=== PATIENT | female | born 2000 | race Caucasian/White ===

== ENCOUNTER 2024-09-14 06:36 | Outpatient (REF) | payer BC, SELFPAY ==
--- NOTE | ~2024-09-14 | US_ITS ---
EXAMINATION: US PELVIS CLINICAL INFORMATION: Irregular periods COMPARISON: None available. TECHNIQUE: Ultrasound of the pelvis is performed using both transabdominal and transvaginal transducers along with Doppler. Transvaginal imaging is performed due to inadequate visualization transabdominally. FINDINGS: [ Uterus: The uterus is anteversion flexion position and measures 6 x 3 x 5 cm. Cervix is closed and normal . The double wall endometrial thickness is 1 mm. The uterus is smooth in contour and has normal myometrial echogenicity. No visible fibroid. Adnexa: Both ovaries are visualized. There is normal color flow to the adnexa. There is no ovarian torsion. There is no pelvic ascites or fluid collection. Right ovary measures 3 x 2 x 2 cm. Volume: 6 cc. Left ovary measures 3 x 2 x 3 cm. Volume: 9 cc US/US pelvic and transvaginal IMPRESSION: Normal exam. Electronically signed by: Merrill Garcia MD 09/15/2024 07:08 AM [facility]
--- OUTSIDE RECORDS SUMMARY | 2024-09-14 06:39 | XMS_ITS | Clinical Summary ---
Author Organization [facility] Address [address] [place] [address] Care Team Providers Care Oncology Transplant Network Manager Name Role Phone Liam Mcadams MD Primary Care Provider [phone] Allergies Active Allergy Reactions Criticality Noted Date Comments Amoxicillin Hives 06/17/2019 Medications fluticasone propionate (FLOVENT DISKUS) 50 mcg/actuation diskus inhaler Inhale 1 puff 2 (two) times a day. Rinse mouth with water after use to reduce aftertaste and incidence of candidiasis. Do not swallow. Active fluticasone propionate (FLONASE NASL) Administer into affected nostril(s). Active levalbuterol (XOPENEX HFA) 45 mcg/actuation inhaler 3 Active Social History Tobacco Use Types Packs/Day Years Used Date Smoking Tobacco: Never Assessed Comments Unknown Sex and Gender Information Value Date Recorded Sex Assigned at Not on file Legal Sex Female 12:27 PM EST Gender Identity Not on file Sexual Orientation Not on file Last Filed Vital Signs Vital Sign Reading Time Taken Comments Blood Pressure 136/92 01/13/2023 12:15 AM EDT Pulse 102 01/13/2023 12:15 AM EDT Temperature 36.7 ??C (98.1 ??F) 01/13/2023 12:15 AM E DT Respiratory Rate 18 01/13/2023 12:15 AM EDT Oxygen Saturation 100% 01/13/2023 12:15 AM EDT Inhaled Oxygen Concentration - - Weight - - Height - - Body Mass Index - - Plan of Treatment Health Maintenance Due Date Last Done Comments Varicella Vaccines (2 of 2 - 2-dose childhood series) 12/16/2006 09/23/2006 Chlamydia Screening 2017 Hepatitis C Screening 12/14/2019 Periodic Health Exam 12/14/2019 Tetanus Diphtheria and Pertussis Vaccines (TD and TDaP) (1 - Tdap) 2020 Cervical Cancer Screening 2022 Influenza (Seasonal) 02/17/2024 04/27/2022, 05/06/2021, 04/11/2020, Additional history exists CoVid-19 Vaccine ( season) 2024 06/27/2021, 10/30/2020, 10/09/2020 HPV Vaccines Completed 02/04/2016, 01/29/2015 Meningococcal Vaccine Completed 12/22/2017, 013 HIB Vaccines Aged Out No longer eligi ble based on patient's age to complete this topic Pneumococcal Vaccine: Pediatrics (0 to 5 Years) and At-Risk Patients (6 to 64 Years) Aged Out No longer eligible based on patient's age to complete this topic Insurance [employer] [facility] Care Teams Oncology Transplant Network Manager Relationship Specialty Start Date End Date Liam Mcadams MD [address] [place], [place] [id number] PCP - General Pediatrics 06/17/19
--- OUTSIDE RECORDS SUMMARY | 2024-09-14 06:39 | XMS_ITS | Clinical Summary ---
Author Organization [facility] Address [address] [place] [address] Phone Care Team Providers Care Manager Of Community Relations Name Role Phone Liam Mcadams MD Primary Care Provider [phone] Sergio Smith MD Unavailable [phone] Liam Mcadams MD Unavailable [phone] Liam Mcadams MD Unavailable [phone] Sergio Smith MD Unavailable [phone] Tad Gutierrez MD Unavailable [phone] Allergies Active Allergy Reactions Criticality Noted Date Comments Penicillins Rash 12/29/2023 Medications sertraline (Zoloft) 50 mg tablet Dose: 50 mg, Dose Amount: 1 tab, PO, daily, Entered: 02/14/20 14:37:00 EDT 02/14/2020 Active Active Problems Problem Noted Date Diagnosed Date Palpitations 12/29/2023 Social History Tobacco Use Types Packs/Day Years Used Date Smoking Tobacco: Never Assessed Comments Unknown Sex and Gender Information Value Date Recorded Sex Assigned at Not on file Legal Sex Female 5:06 PM EDT Gender Identity Not on file Sexual Orientation Not on file Last Filed Vital Signs Vital Sign Reading Time Taken Comments Blood Pressure 140/81 12/29/2023 11:31 AM EDT ma p 101 Pulse 103 12/29/2023 11:31 AM EDT Temperature 36.3 ??C (97.3 ??F) 02/05/2021 11:38 AM E DT Respiratory Rate - - Oxygen Saturation 98% 12/29/2023 11:31 AM EDT Inhaled Oxygen Concentration - - Weight 70 kg (154 lb 5.2 oz) 12/29/2023 11:31 AM EDT Height 166 cm (5' 5.35 ) 12/29/2023 11:31 AM EDT Body Mass Index 25.4 12/29/2023 11:31 AM EDT Plan of Treatment Health Maintenance Due Date Last Done Comments HIV Screening 2001 Varicella Vaccines (2 of 2 - 2-dose childhood series) 12/16/2006 09/23/2006 IPV Vaccines (2 of 3 - 4-dose series) 01/07/2007 12/10/2006 HPV Vaccines (2 - 2-dose series) 08/06/2016 02/04/2016 Hepatitis C Screening 12/14/2019 Hepatitis B Vaccines (1 of 3 - 19+ 3-dose series) 2020 COVID-19 Vaccine ( season) 2024 03/16/2023, 06/27/2021, 10/30/2020, Additional history exists Influenza Vaccine (#1) 2024 , 04/27/2022, 05/06/2021, Additional history exists DTaP/Tdap/Td Vaccines (4 - Td or Tdap) 01/05/2033 01/05/2023, 01/02/2013, 12/10/2006 MMR Vaccines Completed 09/23/2006 Hepatitis A Vaccines Completed 11/29/2017, 03/12/20 17 Meningococcal Vaccine Completed 12/22/2017, 013 HIB Vaccines Aged Out No longer eligi ble based on patient's age to complete this topic Pneumococcal Vaccine: Pediatrics (0 to 5 Years) and At-Risk Patients (6 to 64 Years) Aged Out No longer eligible based on patient's age to complete this topic Rotavirus Vaccines Aged Out No longer eligible based on patient's age to complete this topic Insurance BLUE CROSS - OOS [employer] CROSS - OOS BLUE CROSS - OOS BLUE CROSS - OOS Care Teams Manager Of Community Relations Relationship Specialty Start Date End Date Liam Mcadams MD [address] [place] [phone] PCP - General 09/14/18 Liam Mcadams MD [address] [place] [address] PCP - Clinical PCP 02/23/13 Liam Mcadams MD [address] [place] [phone] PCP - Insurance PCP 12/31/05 Sergio Smith MD [address] [place] [phone] Associate Attending Cardiology 12/01/18 Sergio Smith MD [address] [place] [address] HC Shale Processing Technician 12/18/23 Tad Gutierrez MD [address] [place] [address] HC Cardiology Subspecialist 12/18/23
--- OUTSIDE RECORDS SUMMARY | 2024-09-14 06:39 | XMS_ITS | Clinical Summary ---
Author Organization [facility] Address [phone] [facility] [place] [address] Care Team Providers Care Hand Ironer Name Role Phone Liam Mcadams MD Primary Care Provider [phone] Allergies Active Allergy Reactions Criticality Noted Date Comments Amoxicillin Hives 07/09/2017 Penicillins Hives 06/20/2023 Medications Medication Sig Dispensed Refills Start Date End Date Status LORazepam (ATIVAN) 1 MG tablet Take 0.5 tablets (0.5 mg total) by mouth every 6 (six) hours as needed for anxiety. 10 tablet 08/21/2018 Active Social History Tobacco Use Types Packs/Day Years Used Date Smoking Tobacco: Never Assessed Education Answer Date Recorded Are you interested in more education? Not on sarita e 11/15/2022 Are you concerned about learning? Not on file 11/15/2022 No 11/15/2022 No 11/15/2022 Digital Access Answer Date Recorded No 2022 No 2022 No 2022 Reliable internet access at home? Not on file 2022 Device with a working camera? Not on file Intimate Partner Violence Answer Date R ecorded Are you denied basic needs s uch as food, clothing, or medical care? No 06/20/2023 In the past 12 months have y ou been in a relationship with a person who hurts, threatens, or tries to control you? No 06/20/2023 Are you denied basic needs s uch as food, clothing, or medical care? No 06/20/2023 In the past 12 months have y ou been in a relationship with a person who hurts, threatens, or tries to control you? No 06/20/2023 Sex and Gender Information Value Date Recorded Sex Assigned at Not on file Gender Identity Not on file Sexual Orientation Not on file Last Filed Vital Signs Vital Sign Reading Time Taken Comments Blood Pressure 131/79 06/20/2023 12:54 AM EST Pulse 105 06/20/2023 12:54 AM EST Temperature 36.6 ??C (97.9 ??F) 06/20/2023 12:[address] Respiratory Rate 18 06/20/2023 12:54 AM EST Oxygen Saturation 100% 06/20/2023 12:54 AM EST Inhaled Oxygen Concentration - - Weight 67.1 kg (148 lb) 06/20/2023 12:07 AM EST Height 167.6 cm (5' 6 ) 06/20/2023 12:07 AM EST Body Mass Index 23.89 06/20/2023 12:07 AM EST Plan of Treatment Health Maintenance Due Date Last Done Comments DEPRESSION SCREENING 2013 SMOKING Hx and SMOKELESS TOBACCO SCREENING 2014 HPV VACCINES (2 - 2-dose series) 08/06/2016 02/04/2016 CHLAMYDIA SCREENING 2017 HEPATITIS B SCREENING 12/14/2019 HEPATITIS C SCREENING 12/14/2019 HIV ONE-TIME SCREENING (18-65 YEARS) 12/14/2019 HEPATITIS B VACCINES (1 of 3 - 19+ 3-dose series) 2020 PAP SMEAR 2022 Adult Td,Tdap Booster 01/02/2023 01/02/2013 INFLUENZA VACCINE (#1) 2024 0, 03/27/2019, 04/30/2018, Additional history exists COVID-19 VACCINE ( season) 2024 10/30/2020, 10/09/2020 HEPATITIS A VACCINES Completed 11/29/2017, 03/12/20 17 MENINGOCOCCAL VACCINES (ACWY) Completed 12/22/2017, 01/02/2013 HIB VACCINES Aged Out No longer eligi ble based on patient's age to complete this topic PNEUMOCOCCAL VACCINES (0-49 years) Aged Out No longer eligible based on patient's age to complete this topic Medical Devices Not on file Care Teams Hand Ironer Relationship Specialty Start Date End Date Liam Mcadams MD [address] [place], [place] [id number] [email or web address] PCP - General 08/11/13 Additional Source Comments The information contained in this document represents components of the legal health record. It is not the complete legal health record.[facility]
--- OUTSIDE RECORDS SUMMARY | 2024-09-14 06:39 | XMS_ITS | Encounter Summary ---
Author Organization [facility] Address [address] [place] [address] Care Team Providers Care Rf Technician Name Role Phone Liam Mcadams MD Primary Care Provider [phone] Encounter Details Date Type Department Care Team (Late st Contact Info) Description 06/17/2019 Scan Document - [employer] [facility] [address] [place] [phone] Concha Gavin MD [address] [place] [address] Social History Tobacco Use Types Packs/Day Years Used Date Smoking Tobacco: Never Assessed Comments Unknown Sex and Gender Information Value Date Recorded Sex Assigned at Not on file Legal Sex Female 12:27 PM EST Gender Identity Not on file Sexual Orientation Not on file documented as of this encounter Plan of Treatment Not on file documented as of this encounter Visit Diagnoses Not on filedocumented in this encounter Care Teams Rf Technician Relationship Specialty Start Date End Date Liam Mcadams MD [address] [place] [id number] PCP - General Pediatrics 06/17/19 documented as of this encounter
== END 2024-09-14 06:37 | disposition home or self-care (01) ==
LOC: HO.UMASIMG 06:36
PROVIDERS: Visit Provider Family Medicine
DX: N92.6 Irregular menstruation, unspecified (principal); N94.12 Deep dyspareunia
CPT/HCPCS: 76830; 76856

== ENCOUNTER → 2024-09-14 15:30 | Outpatient (BNV) | payer BC, SELFPAY | PROVIDERS: Visit Provider Radiology Diagnostic Radiology | DX: N92.6 Irregular menstruation, unspecified (principal) | CPT/HCPCS: 76830; 76856 ==